=== PATIENT | female | born 1955 | race African-American/Black ===

== ENCOUNTER 2016-12-27 19:33 | Emergency (ER) | payer OTHER ==
[~2016-12-27] VITALS: Ht 162.6 cm; Wt 64.4 kg
[2016-12-27 20:21] LABS: ABSOLUTE BASOPHIL COUNT 0 /CUMM (0.0-0.2); ABSOLUTE EOSINOPHIL COUNT 0.1 /CUMM (0.0-0.7); ABSOLUTE GRANULOCYTE CT 10.2 /CUMM (1.4-6.5); ABSOLUTE LYMPH COUNT 1.1 /CUMM (1.2-3.4); ABSOLUTE MONOCYTE COUNT 0.2 /CUMM (0.10-0.60); BASOPHIL % 0 % (0.0-2.0); EOSINOPHIL % 0.5 % (0-5); GRANULOCYTE % 88.4 % (42.2-75.2); HEMATOCRIT 45.8 % (37-47); MEAN CORPUSCULAR HGB 30.8 PG (27.0-31.0); MEAN CORPUSCULAR HGB CONC 33.6 G/DL (33.0-37.0); MEAN CORPUSCULAR VOLUME 91.6 FL (81.0-99.0); MEAN PLATELET VOLUME 8.7 FL (7.4-10.4); PLATELET COUNT 259 /CUMM (130-400); RBC DISTRIBUTION WIDTH 14.2 % (11.5-14.5); RED BLOOD CELL CT 4.99 /CUMM (4.20-5.40); WHITE BLOOD CELL COUNT 11.6 /CUMM (4.8-10.8)
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
[2016-12-27] MEDS ORDERED: AMLODIPINE BESYL5 M1 PO (21:01)
[2016-12-27] MEDS ORDERED: METOPROLOL TART25 M1 PO (21:02)
[2016-12-27] MEDS ORDERED: ENALAPRIL MALEA10 M1 PO (21:02)
[2016-12-27 21:43] VITALS: BP 135/69
== END 2016-12-27 21:58 ==
LOC: ERH 19:33
PROVIDERS: Pediatrics
DX: T21.25XA Burn of second degree of buttock, initial encounter (principal); X10.0XXA Contact with hot drinks, initial encounter; Y92.9 Unspecified place or not applicable; Y93.9 Activity, unspecified
CPT/HCPCS: 81003